=== PATIENT | female | born 1940 ===

== ENCOUNTER 2018-02-23 08:00 | Inpatient (IN) | payer OTHER ==
[~2018-02-23] VITALS: Ht 162.6 cm; Wt 57.6 kg
[~2018-02-23 08:00] MED LIST: ADVAIR 2501 DISK W/1 IH; ALAVERT10 MG PO; AVALIDE 150-12.1 TA1 PO; CIPRO750 MG PO; CLONAZEPAM1 MG PO; DILTIAZEM 24HR180 MG PO; DOCUSATE SODIU100 MG PO; ENDOCET 10-3251 EACH PO; GLUCOPHAGE XR500 MG PO; LIPITOR20 MG PO; METHYLPRED4 MG/DOSE- PO; NEURONTIN PO; NORTUSS-EX LIQ118 ML PO; PERCOCET 5/3251 TAB PO; SIMVASTATIN; SINGULAIR10 MG PO; SYNTHROID50 MCG PO; ULTRAM50 MG PO; ZOLOFT50 MG PO; [UNRECOGNIZED DRUG - OTHER] PO
[2018-02-23] MEDS ORDERED: AVALIDE (09:14)
[2018-02-23] MEDS ORDERED: LIPITOR20 MG PO (09:14)
[2018-02-23] MEDS ORDERED: [UNRECOGNIZED DRUG - OTHER] (09:15)
[2018-03-06] MEDS ORDERED: ZOCOR5 MG PO (09:07)
[2018-03-06] MEDS ORDERED: NEURONTIN800 MG PO (09:08)
[2018-03-07] MEDS ORDERED: DOCUSATE SODIU100 MG PO (09:15)
[2018-03-07] MEDS ORDERED: CLONAZEPAM1 MG PO (09:16)
[2018-03-07] MEDS ORDERED: PERCOCET 5-3251 EACH PO (09:16)
== END 2018-03-07 12:02 | DRG 454 ==
LOC: O/R 03-06 03:50 → SURH 03-06 07:15 → PED 03-06 11:25
PROVIDERS: Orthopaedic Surgery Orthopaedic Surgery of the Spine
PROC: 0RG1071 Fusion of Cervical Vertebral Joint with Autologous Tissue Substitute, Posterior Approach, Posterior Column, Open Approach (ICD-10-PCS; 2018-03-06)
PROC: 0RT30ZZ Resection of Cervical Vertebral Disc, Open Approach (ICD-10-PCS; 2018-03-06)
PROC: 07DS3ZZ Extraction of Vertebral Bone Marrow, Percutaneous Approach (ICD-10-PCS; 2018-03-06)
PROC: 0RG10A0 Fusion of Cervical Vertebral Joint with Interbody Fusion Device, Anterior Approach, Anterior Column, Open Approach (ICD-10-PCS; principal; 2018-03-06 07:15)
PROC: 3E0F7GC Introduction of Other Therapeutic Substance into Respiratory Tract, Via Natural or Artificial Opening (ICD-10-PCS; 2018-03-07)
DX: M50.021 Cervical disc disorder at C4-C5 level with myelopathy (principal); M47.12 Other spondylosis with myelopathy, cervical region; E03.8 Other specified hypothyroidism; I10 Essential (primary) hypertension; E11.9 Type 2 diabetes mellitus without complications; J45.998 Other asthma